=== PATIENT | female | born 1990 | race Caucasian/White ===

== ENCOUNTER 2016-08-21 01:52 | Emergency (ER) | payer MEDICAID ==
[2016-08-21 02:05] VITALS: PULSE 80; TEMP 97.9
[2016-08-21] MEDS ORDERED: DiphenhydrAMINE 50 mg/ml Inj IVP STA (02:50)
[2016-08-21] MEDS ORDERED: Sodium Chloride 0.9% 1,000 ML IV ONE (02:50)
--- NOTE | 2016-08-21 02:50 | C.PDOC ---
History Of Present Illness The patient reports 2 week history of intermittent non-bloody diarrhea and suprapubic pain. Patient reports that the pain is associated with dysuria and vaginal discharge. Patient also notes that she developed a headache today which is frontal in location and associated with photophobia. Denies vision changes, numbness, weakness, neck pain, trauma, fever, vomiting, travel, recent antibiotics use, vaginal bleeding. Time Seen by Provider: 08/21/16 02:08 Chief Complaint (Nursing): GI Problem History Per: Patient History/Exam Limitations: no limitations Onset/Duration Of Symptoms: Days Current Symptoms Are (Timing): Still Present Pain Scale Rating Of: 6 Location Of Pain/Discomfort: Suprapubic Radiation Of Pain To:: None Quality Of Discomfort: Burning Associated Symptoms: denies: Fever, Chills, Nausea, Vomiting Exacerbating Factors: None Alleviating Factors: None Recent travel outside of the [place]: No Past Medical History Reviewed: Historical Data, Nursing Documentation, Vital Signs Vital Signs: Last Vital Signs Temp 97.9 F 08/21/16 02:01 Pulse 80 08/21/16 02:01 Resp 14 08/21/16 02:01 BP 120/70 08/21/16 02:01 Pulse Ox 99 08/21/16 05:19 - Medical History PMH: No Chronic Diseases Surgical History: No Surg Hx Family History: States: No Known Family Hx - Social History Hx Alcohol Use: No Hx Substance Use: No - Immunization History Hx Tetanus Toxoid Vaccination: No Hx Influenza Vaccination: No Hx Pneumococcal Vaccination: No Review Of Systems Except As Marked, All Systems Reviewed And Found Negative. Physical Exam - Physical Exam Appears: Non-toxic, No Acute Distress Skin: Normal Color, Warm, No Rash Head: Atraumatic, Normacephalic, Other (no temporal artery tenderness) Eye(s): bilateral: Normal Inspection, PERRL, EOMI Ear(s): Bilateral: Normal Oral Mucosa: Moist Tongue: Normal Appearing Throat: No Erythema, No Exudate Neck: Normal ROM, Supple Chest: Symmetrical, No Tenderness Cardiovascular: Rhythm Regular, No Friction Rub, No Murmur Respiratory: Normal Breath Sounds, No Rales, No Rhonchi, No Wheezing Gastrointestinal/Abdominal: Normal Exam, Soft, No Tenderness, No Guarding, No Rebound, No Hernia Back: Normal Inspection, No CVA Tenderness Pelvic: Normal External Exam, Normal Bimanual Exam, No Vaginal Bleeding, Vaginal Discharge (scant yellow/hobson discharge), No Cervical Motion Tenderness, No Adnexal Tenderness, No Mass Extremity: Normal ROM, No Swelling Neurological/Psych: Oriented x3, Normal Speech, Normal Cranial Nerves, Normal Motor, Normal Sensation Gait: Steady ED Course And Treatment - Laboratory Results Result Diagrams: 08/21/16 03:07 08/21/16 03:07 Interpretation Of Abnormal: UA (+) for UTI Urine POC: Negative O2 Sat by Pulse Oximetry: 99 (on RA) Pulse Ox Interpretation: Normal Medical Decision Making Medical Decision Making: The patient had scant yellow/hobson discharge on the pelvic exam which is suggestive of bacterial vaginosis. The patient will be treated for UTI and possible colitis with Cipro and flagyl PO. The patient had no episode of diarrhea in the ED, so no stool was sent. On re-exam, the patient reports improvement of headache and symptoms. Ambulatory in the ED with steady gait. Lungs are CTA, heart is RRR, abdomen is soft, non-tender and patient is tolerating Po well. Follow up with the medical doctor within 1-2 days without fail, Return if worsened. Disposition - Disposition Referrals: [facility] [Outside] Disposition: HOME/ ROUTINE Disposition Time: 06:13 Condition: IMPROVED Additional Instructions: Follow up with the medical doctor within 1-2 days without fail, Return if worsened. Prescriptions: Acetaminophen/Butalbital/Caf [Fioricet] 1 tab PO TID PRN #20 tab PRN Reason: Headache Ciprofloxacin [Cipro] 1 tab PO BID #14 tab Ibuprofen [Motrin] 600 mg PO TID #21 tab metroNIDAZOLE [Flagyl] 500 mg PO BID #14 tab Instructions: Acute Diarrhea (ED), Vaginitis (ED), Urinary Tract Infection in Women (ED) - Clinical Impression Clinical Impression: Bacterial vaginosis, UTI (urinary tract infection), Acute headache, Diarrhea
[2016-08-21] MEDS ORDERED: DiphenhydrAMINE 50 mg/ml Inj ONE (03:09)
[2016-08-21] MEDS ORDERED: Sodium Chloride 0.9% 1,000 ML ONE (03:09)
[2016-08-21 03:14] LABS: CHLORIDE 104 mmol/L (98-107); SODIUM 136 mmol/L (132-148)
[2016-08-21 03:15] LABS: POTASSIUM 3.7 mmol/L (3.6-5.2)
[2016-08-21 03:16] LABS: BILIRUBIN,TOTAL 0.4 mg/dL (0.2-1.3); GFR AFRICAN-AMERICAN > 60
[2016-08-21 03:17] LABS: ALB/GLOB RATIO 1.3 (1.0-2.1); ALKALINE PHOSPHATASE 99 U/L (38-126); ALT/SGPT 34 U/L (9-52); AST/SGOT 25 U/L (14-36); BLOOD UREA NITROGEN 10 mg/dL (7-17); CALCIUM 8.4 mg/dl (8.6-10.4); CARBON DIOXIDE 23 mmol/L (22-30); GLUCOSE,RANDOM 90 mg/dL (65-105); RBC URINE 3 /hpf (0-3); TOTAL PROTEIN 7.1 g/dL (6.3-8.3); URINE BILIRUBIN NEGATIVE (NEGATIVE); URINE BLOOD NEGATIVE (NEGATIVE); URINE COLOR Yellow (YELLOW); URINE GLUCOSE (UA) NORMAL (Normal); URINE KETONE NEGATIVE (NEGATIVE); URINE LEUKOCYTE ESTERASE 1+ Leu/uL (Negative); URINE PROTEIN NEGATIVE (NEGATIVE); URINE UROBILINOGEN NORMAL mg/dL (0.2-1.0); WBC URINE 12 /hpf (0-5)
[2016-08-21 03:21] LABS: BASO # 0.1 K/uL (0.0-0.2); BASO % 0.6 % (0.0-2.0); EOS # 0.2 K/uL (0.0-0.7); EOS % 1.5 % (0.0-4.0); HEMATOCRIT 35.7 % (34.0-47.0); LYMPH # 2.3 K/uL (1.0-4.3); LYMPH % 22.3 % (20.0-40.0); MEAN CELL VOLUME 76.7 fL (81.0-99.0); MEAN CORPUSCULAR HEMOGLOBIN 24.7 pg (27.0-31.0); MEAN CORPUSCULAR HGB CONC 32.1 g/dL (33.0-37.0); MONO # 0.5 K/uL (0.0-0.8); RED CELL DISTRIBUTION WIDTH 13.7 % (11.5-14.5); WHITE BLOOD COUNT 10.2 K/uL (4.8-10.8)
[2016-08-21 06:26] VITALS: BP 130/75; RESP 20; O2SAT 100
== END 2016-08-21 06:26 | disposition home or self-care (01) ==
LOC: C.ER 01:52
DX: N76.0 Acute vaginitis (principal); N39.0 Urinary tract infection, site not specified; R51 Headache; R19.7 Diarrhea, unspecified
CPT/HCPCS: 80053; 81001; 83690; 84703; 85025; 87086; 87181; 96361; 96374; 96375; 99283; J1200; J1885; J2765; J7040